=== PATIENT | female | born 1940 | race Caucasian/White ===

== ENCOUNTER 2018-11-01 16:07 | Inpatient (IN) | payer OTHER, MEDICAID ==
[~2018-11-01] VITALS: Ht 160 cm; Wt 68.5 kg
[2018-11-01 16:12] VITALS: Ht 160 cm; Wt 68.5 kg
[2018-11-01 17:07] LABS: BASOPHIL % 0.4 % (0-2); PLATELET COUNT 187 x10^3mcL (130-400); RED CELL DISTRIBUTION WIDTH 14.2 % (11.5-14.5)
[2018-11-01 17:18] LABS: CALCIUM 8.3 mg/dL (8.5-10.1); CARBON DIOXIDE 24.4 mmol/L (21-32); CHLORIDE SERUM 99 mmol/L (98-107); GLUCOSE SERUM 138 mg/dL (74-106); POTASSIUM SERUM 4.1 mmol/L (3.5-5.1); SODIUM SERUM 133 mmol/L (136-145)
[2018-11-01 17:23] LABS: ALBUMIN 3.6 g/dL (3.4-5.0); ALKALINE PHOSPHATASE 65 U/L (46-116); ALT/SGPT 31 U/L (14-59); AST/SGOT 24 U/L (15-37); BILIRUBIN TOTAL 0.4 mg/dL (0.20-1.00); TOTAL PROTEIN, SERUM 6.4 g/dL (6.4-8.2)
[2018-11-01] MEDS ORDERED: BENAZEPRIL HYDR20 M1 PO (18:13)
[2018-11-01] MEDS ORDERED: METOPROLOL PO (18:14)
[2018-11-01] MEDS ORDERED: XARELTO PO (18:15)
[2018-11-01 18:21] LABS: microscopic required? YES; urine erythrocyte 2+ (NEGATIVE)
[2018-11-01 19:30] LABS: CHOLESTEROL/HDL RATIO 2.4; MAGNESIUM 1.7 mg/dL (1.8-2.4); PHOSPHOROUS 3.4 mg/dL (2.5-4.9)
[2018-11-01 19:36] LABS: FREE T4 1.24 ng/dL (0.76-1.46); FREE THYROXINE INDEX 3.6 ug/dL (1.4-4.5); T4(THYROXINE) 9.6 ug/dL (4.7-13.3)
[2018-11-01 19:37] LABS: T3 TOTAL 0.99 ng/mL
[2018-11-01 20:03] VITALS: BP 168/101
[2018-11-01 22:28] VITALS: BP 133/71
[2018-11-02] MEDS ORDERED: NAPROXEN375 MG PO (00:40)
[2018-11-02] MEDS ORDERED: LEVOTHYROXINE0.1 M2 PO (00:42)
[2018-11-02] MEDS ORDERED: SIMVASTATIN40 M1 PO (00:43)
[2018-11-02 05:12] VITALS: BP 132/83
[2018-11-02 06:34] LABS: BASOPHIL % 0.4 % (0-2); PLATELET COUNT 166 x10^3mcL (130-400); RED CELL DISTRIBUTION WIDTH 14.2 % (11.5-14.5)
[2018-11-02 06:46] LABS: CALCIUM 8.8 mg/dL (8.5-10.1); CARBON DIOXIDE 24.2 mmol/L (21-32); CHLORIDE SERUM 105 mmol/L (98-107); CREATININE SERUM 0.7 mg/dL (0.6-1.0); GLUCOSE SERUM 90 mg/dL (74-106); SODIUM SERUM 140 mmol/L (136-145)
[2018-11-02 09:50] VITALS: BP 140/85
[2018-11-02] MEDS ORDERED: LAC PO (12:56)
[2018-11-02] MEDS ORDERED: KEFLEX500 M1 PO (12:56)
[2018-11-02 13:51] VITALS: BP 140/85
== END 2018-11-02 15:05 | disposition home or self-care (01) | DRG 605 ==
LOC: ED 16:07 → MU 18:43
PROVIDERS: Emergency Medicine; ADMIT Family Medicine
DX: S00.03XA Contusion of scalp, initial encounter (principal); N39.0 Urinary tract infection, site not specified; E87.1 Hypo-osmolality and hyponatremia; R55 Syncope and collapse; R51 Headache; E83.51 Hypocalcemia; E83.42 Hypomagnesemia; I48.91 Unspecified atrial fibrillation; Z68.26 Body mass index [BMI] 26.0-26.9, adult; Z79.01 Long term (current) use of anticoagulants; W18.39XA Other fall on same level, initial encounter; Y93.01 Activity, walking, marching and hiking; Y92.89 Other specified places as the place of occurrence of the external cause
CPT/HCPCS: 83880; 84439; J0696; J7030; Q0092

== ENCOUNTER 2018-12-16 18:21 | Inpatient (IN) | payer OTHER ==
[~2018-12-16] VITALS: Ht 160 cm; Wt 65.8 kg
[~2018-12-16 18:21] MED LIST: BENAZEPRIL HYDR20 M1 PO; KEFLEX500 M1 PO; LAC PO; LEVOTHYROXINE0.1 M2 PO; METOPROLOL PO; NAPROXEN375 MG PO; SIMVASTATIN40 M1 PO; XARELTO PO
[2018-12-16 18:37] VITALS: Ht 160 cm; Wt 65.8 kg
--- NOTE | 2018-12-16 18:53 | NUR ---
PATIENT BROUGHT SELF TO ED. DR GIBBONS AT BEDSIDE FOR MSE. PER DR GIBBONS TRANSLATION PATIENT HAS BEEN FEELING PROGRESSIVE GEN WEAKNESS SINCE A FALL SHE HAD LAST MONTH. LAST NIGHT SHE HAD EPISODES OF CHILLS AND HOT FLASHES. DENIES NAUSEA, DENIES VOMITING. DENIES SOB. C/O MINOR NON PROD COUGH WITH MILD LEFT SIDED CHEST PAIN. PATIENT ORIENTED TO ROOM WITH CALL LIGHT PLACED WITHIN REACH.
--- NOTE | 2018-12-16 19:04 | NUR ---
REPORT GIVEN TO NAEL RIOS.
[2018-12-16 19:29] LABS: UA SPECIFIC GRAVITY <=1.005 (1.005-1.035); microscopic required? YES; urine erythrocyte 3+ (NEGATIVE)
[2018-12-16 19:31] LABS: BASOPHIL % 0.3 % (0-2); PLATELET COUNT 177 x10^3mcL (130-400); RED CELL DISTRIBUTION WIDTH 15.6 % (11.5-14.5)
[2018-12-16 19:32] LABS: CALCIUM 9.2 mg/dL (8.5-10.1); CARBON DIOXIDE 23.4 mmol/L (21-32); CHLORIDE SERUM 92 mmol/L (98-107); CREATININE SERUM 0.8 mg/dL (0.6-1.0); GLUCOSE SERUM 90 mg/dL (74-106); POTASSIUM SERUM 4.3 mmol/L (3.5-5.1); SODIUM SERUM 125 mmol/L (136-145)
[2018-12-16 19:36] LABS: ALBUMIN 3.8 g/dL (3.4-5.0); ALKALINE PHOSPHATASE 91 U/L (46-116); ALT/SGPT 25 U/L (14-59); AST/SGOT 36 U/L (15-37); BILIRUBIN TOTAL 1.05 mg/dL (0.20-1.00); TOTAL PROTEIN, SERUM 7.8 g/dL (6.4-8.2)
--- NOTE | 2018-12-16 20:36 | NUR ---
SUMMONDED TO PTS ROOM TO ASSIST HER OFF THE MONITOR SO THAT SHE CAN USE THE RESTROOM. PT AMBULATES TO RESTROOM WITH STEADY GAIT. PT COMPLAINS OF A 10/10 HEADACHE. VITALS ARE WNL. MD GIBBONS MADE AWARE. PT IS A/O X4. RESP ARE EQUAL AND UNLABORED. NO ACUTE DISTRESS NOTED.
[2018-12-16] MEDS ORDERED: NAPROXEN375 MG PO (20:50)
[2018-12-16] MEDS ORDERED: BENAZEPRIL HYDR20 M1 PO (20:50)
[2018-12-16] MEDS ORDERED: LEVOTHYROXINE0.1 M2 PO (20:51)
[2018-12-16] MEDS ORDERED: SIMVASTATIN40 M1 PO (20:51)
[2018-12-16] MEDS ORDERED: OMEPRAZOLE40 M1 PO (20:51)
[2018-12-16] MEDS ORDERED: TOPROL XL50 MG PO (20:51)
[2018-12-16 23:39] VITALS: BP 149/71
--- NOTE | 2018-12-16 23:48 | NUR ---
RECEIVED PT FROM ER, PT ADMIT FOR CHEST PAIN, HYPONATREMIA, PT IS A/O X4, VERBAL RESPONSIVE, ABLE TO TELL WHAT SHE NEEDS. LUNG SOUND CLEAR BILATERAL, NO COUGH, NO SOB, PT IS ON TELE 13, A.FIB, C/O CHEST PAIN 8/10, BOWEL SOUND PRESENT ALL 4 QUADRANTS, NO DISTENTION, NO TENDER. PEDAL PULSE PRESENT BOTH FEET, NO EDEMA, IV AT RIGHT HAND, NO LEAKING, NO INFITLRATION. ALL ADLS ASSIST, ALL NEED MET, CALL LIGHT IN REACH, WILL CONTINUE TO MONITOR.
[2018-12-17 04:54] VITALS: BP 111/63
--- NOTE | 2018-12-17 05:17 | NUR ---
PT SLEPT THROUGHOUT THE REMAINDER OF THE SHIFT. NO SIGNIFCANT CHANGES NOTED. PT CURRENTLY RESTING IN BED WITH EYES CLOSED. NO USE OF ACCESSORY MUSCLES OR LABORED BREATHING ON ASSESSMENT. THERE IS NO FACIAL GRIMMACING OR SIGNS OF DISTRESS NOTED. SAFETY MEASURES ARE IN PLACE. BED IN THE LOWEST POSITION. CALL LIGHT IS WITHIN REACH. WILL ENDORSE CONTINUITY OF CARE TO THE DAY SHIFT RN.
[2018-12-17 06:43] LABS: BASOPHIL % 0.4 % (0-2); PLATELET COUNT 157 x10^3mcL (130-400)
[2018-12-17 06:52] LABS: RED CELL DISTRIBUTION WIDTH 15.1 % (11.5-14.5)
--- NOTE | 2018-12-17 07:10 | NUR ---
RECIEVED PT RESTING IN BED WITH NO C/O OF DISTRESS OR SOB. PT STATES SHE HAS A 5/10 KOENIG, WILL MEDICATE WITH TYLENOL [ER EMAR AND REASSESS. PT A/O X4 WITH NO DIZZINESS. LUNGS CTAB, NO SOB NOTED. NS RUNNING AT 100ML/HR IN RIGHT HAND 22G. NO REDNESS OR INFLAMMATION. INTACT AND PATENT. SAFETY PRECAUTIONS IN PLACE, CALL LIGHT WITHIN REACH, WILL MONITOR.
[2018-12-17 07:38] LABS: CHOLESTEROL/HDL RATIO 1.8
--- NOTE | 2018-12-17 10:24 | NUR ---
SODIUM LAB RESULT STILL PENDING, WILL MONITOR.
[2018-12-17 10:37] LABS: CALCIUM 8.2 mg/dL (8.5-10.1); CHLORIDE SERUM 99 mmol/L (98-107); CREATININE SERUM 0.7 mg/dL (0.6-1.0); GLUCOSE SERUM 87 mg/dL (74-106); POTASSIUM SERUM 4.1 mmol/L (3.5-5.1); SODIUM SERUM 133 mmol/L (136-145)
--- NOTE | 2018-12-17 11:03 | NUR ---
NOTIFIED DR WRIGHT THAT PT SODIUM LEVEL IS 133. NO NEW ORDERS AT THIS TIME, WILL F/U.
--- NOTE | 2018-12-17 12:36 | NUR ---
PT STABLE AT THIS TIME. REPORTS NO PAIN, DISTRESS, OR SOB. SAFETY PRECAUTIONS IN PLACE, CALL LIGHT WITHIN REACH, WILL MONITOR.
[2018-12-17 12:42] VITALS: BP 117/63
--- NOTE | 2018-12-17 15:00 | NUR ---
PT STABLE AT THIS TIME. REPORTS NO PAIN, DISTRESS, OR SOB. SAFETY PRECAUTIONS IN PLACE, CALL LIGHT WITHIN REACH, WILL MONITOR.
[2018-12-17 17:20] VITALS: BP 124/51
--- NOTE | 2018-12-17 17:58 | NUR ---
NOTIFIED DR WRIGHT THAT GRAM NEGATIVE RODS BLOOD RESULTS RECIEVED FOR PT. NO NEW ORDERS AT THIS TIME, WILL MONITOR.
--- NOTE | 2018-12-17 18:27 | NUR ---
PT RESTING IN BED WITH FAMILY AT BEDSIDE. NO DISTRESS, PAIN, OR SOB NOTED. PT TRANSFERRED TO MED SURG. DENIES CP OR PRESSURE. A/O X4. RH IV INTACT AND PATENT WITH NO REDNESS OR INFLAMMATION NOTED. 70ML/HR NS RUNNING. ALL CARES TOLERATED WELL. SAFETY PRECAUTIONS IN PLACE, CALL LIGHT WITHIN REACH, WILL ENDORSE CARE TO NIGHT NURSE.
--- NOTE | 2018-12-17 19:30 | NUR ---
RECEIVED PT RESTING IN BED, PT AOX4, DENIES KOENIG/DIZZINESS. MEDSURG PT, DENIES CP. PULSES PALPABLE BILAT, DENIES NUMBNESS/TINGLING IN FEET. RESP EVEN AND UNLABORED ON RA, DENIES SOB. ABD SOFT, ROUND, DENIES ABD PAIN. PT USES URINAL AT BEDSIDE, REPORTS DECREASING DYSURIA. ON ROCEPHIN FOR UTI. GENERALIZED WEAKNESS, SKIN INTACT. IV SITE TO THE RT HAND PATENT, NS @ 70ML/HR. NO REDNESS, SWELLING OR PAIN NOTED. ALL COMFORT AND SAFETY MEASURES PROVIDED FOR, CALL LIGHT WTIHIN REACH, BED IN LOWEST POSITION, WILL CONTINUE TO MONITOR.
[2018-12-17 20:38] VITALS: BP 119/54
[2018-12-18 05:01] VITALS: BP 131/72; BP 137/56
--- NOTE | 2018-12-18 05:05 | NUR ---
PT RESTED IN INTERVALS DURING SHIFT, NO ACUTE CHANGES OCCURRING OVERNIGHT. PT REPORTS DECREASING DYSURIA. TOLERATING ANTIBIOTICS WELL. IV SITE REMAINS PATENT TO RH HAND, NS @ 70ML/HR. NO REDNESS, SWELLING OR PAIN NOTED. PT URINATED IN BEDSIDE COMMODE, DENIES CP DURING SHIFT. ALL COMFORT AND SAFETY MEASURES PROVIDED FOR, CALL LIGHT WITHIN REACH, BED IN LOWEST POSITION, WILL CONTINUE TO MONITOR.
[2018-12-18 06:52] LABS: BASOPHIL % 0.5 % (0-2); PLATELET COUNT 171 x10^3mcL (130-400)
[2018-12-18 06:53] LABS: RED CELL DISTRIBUTION WIDTH 15.2 % (11.5-14.5)
[2018-12-18 06:59] LABS: CALCIUM 8.4 mg/dL (8.5-10.1); CARBON DIOXIDE 21.8 mmol/L (21-32); CHLORIDE SERUM 106 mmol/L (98-107); CREATININE SERUM 0.6 mg/dL (0.6-1.0); GLUCOSE SERUM 89 mg/dL (74-106); MAGNESIUM 1.8 mg/dL (1.8-2.4); PHOSPHOROUS 2.9 mg/dL (2.5-4.9); POTASSIUM SERUM 3.8 mmol/L (3.5-5.1); SODIUM SERUM 140 mmol/L (136-145)
--- NOTE | 2018-12-18 07:30 | NUR ---
PT IS AAOX4. DIVEHI SPEAKING. DENIES H/A OR DIZZINESS AT THIS TIME. PT HAS A-FIB DEMONSTRATED ON ECG, PT IS ON ELIQUIS. RESP EVEN AND UNLABORED. LUNG SOUNDS CTA. ON R/A. NO COUGH OR SOB NOTED. ABDOMEN SOFT, NONTENDER, NONDISTENDED. BOWEL SOUNDS ACTIVE X 4 QUADS. DENIES N/V/D. SKIN CDI. NO EDEMA NOTED. PERPHERAL PULSES MODERATELY PALPABLE. DENIES NUMBNESS AND TINGLING. IVF RUNNING TO R HAND. SITE WNL, NO S/S OF INFECTION OR INFILTRATION NOTED. PT DENIES PAIN AT THIS TIME. CALL LIGHT WITHIN REACH. BED IN LOWEST POSITION.
--- NOTE | 2018-12-18 07:41 | NUR ---
ENDORSED ALL CARE TO DAYSHIFT NURSE, NO ACUTE DISTRESS NOTED. ALL QUESTIONS AND CONCERNS ADDRESSED, CALL LIGHT WITHIN REACH, BED IN LOWEST POSITION.
[2018-12-18 08:58] VITALS: BP 157/92
--- NOTE | 2018-12-18 13:44 | NUR ---
PT IS SITTING UP AT BEDSIDE VISITING WITH FAMILY. NO C/O C/P, H/A OR WEAKNESS. PT DENIES PAIN. NO DISTRESS NOTED. CALL LIGHT WITHIN REACH.
--- NOTE | 2018-12-18 13:49 | NUR ---
DR. COPPOLA MET WITH PT AND DISCUSSED POC. PT IS TO CONTINUE ELIQUIS, METOPROLOL, BENAZEPRIL AND STATIN. NO ADDITIONAL CARDICA WORK UP NEED AT THIS TIME. PT AGREED WITH POC.
--- NOTE | 2018-12-18 15:55 | NUR ---
PT IS SITTING UP AT BEDSIDE TALKING WITH ROOMMATE AND FAMILY. RESP EVEN AND UNLABORED. NO DISTRESS NOTED. DENIES PAIN AT THIS TIME.
[2018-12-18 16:09] VITALS: BP 121/63
--- NOTE | 2018-12-18 18:43 | NUR ---
TYLENOL 650MG PO GIVEN FOR H/A 09/02. EXTRA FLUIDS GIVEN. RESP EVEN AND UNLABORED. NO OTHER DISTRESS NOTED. PT DENIES C/P, PRESSURE AND PALPITATIONS. IVF RUNNING TO R HAND. SITE WNL, NO S/S OF INFECTION OR INFILTRATION NOTED. WILL ENDORSE ALL CARE TO NOC NAEL.
--- NOTE | 2018-12-18 19:17 | NUR ---
ATIVAN 0.5MG PO GIVEN FOR ANXIETY. PT STATES SHE NEEDS IT OR SHE CAN NOT SLEEP. PT STATES SHE HAS HAD INSOMNIA FOR MANY YEARS. CALL LIGHT WITHIN REACH.
--- NOTE | 2018-12-18 19:40 | NUR ---
RECIEVED PT IN NO ACUTE DISTRESS. AOX4. MED SURG. DENIES CP/KOENIG. BREATHING E/U. IV TO R HAND, PATENT AND INFUSING. BED IN LOWEST POSITION, 2 SIDE RAILS UP, CALL LIGHT IN REACH. INSTRUCTED TO CALL FOR ASSISTANCE.
[2018-12-18 21:14] VITALS: BP 133/68
--- NOTE | 2018-12-19 02:01 | NUR ---
RESTING WITH EYES CLOSED. BREATHING E/U. NO ACUTE DISTRESS NOTED. WILL CONTINUE TO MONITOR.
[2018-12-19 05:53] VITALS: BP 149/74
[2018-12-19 06:39] LABS: BASOPHIL % 0.7 % (0-2); PLATELET COUNT 194 x10^3mcL (130-400)
[2018-12-19 06:49] LABS: RED CELL DISTRIBUTION WIDTH 14.9 % (11.5-14.5)
--- NOTE | 2018-12-19 06:51 | NUR ---
NO C/O CP OVERNIGHT. NO ACUTE CHANGES. NO ACUTE DISTRESS NOTED. WILL ENDORSE TO ONCOMING RN.
[2018-12-19 06:53] LABS: CALCIUM 8.7 mg/dL (8.5-10.1); CARBON DIOXIDE 27.9 mmol/L (21-32); CHLORIDE SERUM 105 mmol/L (98-107); CREATININE SERUM 0.7 mg/dL (0.6-1.0); GLUCOSE SERUM 88 mg/dL (74-106); POTASSIUM SERUM 4.1 mmol/L (3.5-5.1); SODIUM SERUM 141 mmol/L (136-145)
--- NOTE | 2018-12-19 07:20 | NUR ---
PT IS AAOX4. RESP EVEN AND UNLABORED. LUNG SOUNDS CTA. ON R/A. NORMAL S1S2 NOTED. DENIES C/P, PRESSURE AND PALPITATIONS. ABDOMEN SOFT, NONTENDER, NONDISTENDED. BOWEL SOUNDS ACTIVE X 4 QUADS. DENIES N/V/D. SKIN CDI. PERIPHERAL PULSES MODERATLY PALPABLE. NO EDEMA NOTED. CAP REFILL <3SECS. IVF RUNNING TO R HAND. SITE WNL. NO S/S OF INFECTION OR INFILTRATION NOTED. PT DENIES PAIN. CALL LIGHT WITHIN REACH. BED IN LOWEST POSITION. FALL PROTOCOL MAINTAINED.
[2018-12-19] MEDS ORDERED: BACTRIM DS1 TAB PO (08:14)
[2018-12-19 08:15] VITALS: BP 147/84
--- NOTE | 2018-12-19 09:25 | NUR ---
PT SITTING UP IN BED VISITING WITH GREAT NEPHEW. RESP EVEN AND UNLABORED. NO PT HAS BACK PAIN 09/02. TYLENOL 650MG PO GIVEN, DUE MED GIVEN AND TOLERATED WELL. EXTRA FLUIDS ENCOURAGED. B/P 143/93. CALL LIGHT WITHIN REACH.
[2018-12-19 09:40] VITALS: BP 147/84
--- NOTE | 2018-12-19 10:23 | NUR ---
PT IS SLEEPING IN BED, RESP EVEN AND UNLABORED. NO DISTRESS NOTED. CALL LIGHT WITHIN REACH.
--- NOTE | 2018-12-19 11:00 | NUR ---
PT DISCHARGED TO HOME IN NO DISTRESS. DISCHARGE INSTRUCTIONS REVIEW, RX GIVEN TO PT. ALL FORMS SIGNED AND PLACED IN PT'S CHART. IV CATH TO RH REMOVED. SITE WNL, COVERED WITH GAUZE AND BANDAID. VS: T 98.7F, HR 75, RR 20, BP 143/93, O2 SAT 97%. PT DENIES PAIN AND DISCOMFORT AT TIME OF DISCHARGE. ALL PERSONAL BELONGINGS TAKEN WITH PT.
== END 2018-12-19 11:03 | disposition home or self-care (01) | DRG 690 ==
LOC: ED 18:21 → MU 21:53 → DU 21:53 → MU 12-18 04:36
PROVIDERS: Emergency Medicine; ADMIT General Practice
DX: N39.0 Urinary tract infection, site not specified (principal); E87.1 Hypo-osmolality and hyponatremia; I48.2 Chronic atrial fibrillation; B96.29 Other Escherichia coli [E. coli] as the cause of diseases classified elsewhere; I10 Essential (primary) hypertension; D64.9 Anemia, unspecified; E03.9 Hypothyroidism, unspecified; E78.5 Hyperlipidemia, unspecified; Z68.28 Body mass index [BMI] 28.0-28.9, adult
CPT/HCPCS: G0378; J0696; J1885; J7030; J7060; Q0092

== ENCOUNTER → 2019-01-26 | Outpatient (CLI) | payer OTHER ==
[~2019-01-26] MED LIST changes: +BACTRIM DS1 TAB PO; +OMEPRAZOLE40 M1 PO; +TOPROL XL50 MG PO
== END | disposition home or self-care (01) ==
LOC: RD 09:22
DX: R93.7 Abnormal findings on diagnostic imaging of other parts of musculoskeletal system (principal)

== ENCOUNTER 2019-04-29 10:00 | Emergency (ER) | payer OTHER ==
[~2019-04-29] VITALS: Ht 160 cm; Wt 64.9 kg
[2019-04-29 11:08] LABS: BASOPHIL % 0.4 % (0-2); PLATELET COUNT 238 x10^3mcL (130-400)
[2019-04-29 11:09] LABS: RED CELL DISTRIBUTION WIDTH 14.8 % (11.5-14.5)
[2019-04-29 11:35] LABS: CALCIUM 8.4 mg/dL (8.5-10.1); CARBON DIOXIDE 26.8 mmol/L (21-32); CHLORIDE SERUM 96 mmol/L (98-107); CREATININE SERUM 0.9 mg/dL (0.6-1.0); GLUCOSE SERUM 95 mg/dL (74-106); POTASSIUM SERUM 4.5 mmol/L (3.5-5.1); SODIUM SERUM 132 mmol/L (136-145)
[2019-04-29 11:39] LABS: ALBUMIN 4.1 g/dL (3.4-5.0); ALKALINE PHOSPHATASE 86 U/L (46-116); ALT/SGPT 21 U/L (14-59); AST/SGOT 19 U/L (15-37); BILIRUBIN TOTAL 0.46 mg/dL (0.20-1.00); LIPASE 166 IU/L (73-393); TOTAL PROTEIN, SERUM 7.7 g/dL (6.4-8.2)
[2019-04-29 13:57] VITALS: BP 159/98
== END 2019-04-29 13:57 | disposition home or self-care (01) ==
LOC: ED 10:00
PROVIDERS: Emergency Medicine
DX: R10.84 Generalized abdominal pain (principal); F41.9 Anxiety disorder, unspecified; I10 Essential (primary) hypertension; E78.00 Pure hypercholesterolemia, unspecified
CPT/HCPCS: J2405; J7030